=== PATIENT | male | born 1990 | race Caucasian/White ===

== ENCOUNTER 2020-04-13 21:05 | Emergency (ER) | payer SELFPAY ==
[~2020-04-13] VITALS: Ht 193 cm; Wt 79.5 kg
[2020-04-13 21:41] VITALS: BP 136/74
[2020-04-13] MEDS ORDERED: KETOROLAC 15 MG/ML VIAL. IVP ONE (23:00)
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
== END 2020-04-13 22:56 | disposition left against medical advice (07) ==
LOC: ER 21:05
DX: R60.0 Localized edema (principal); M79.605 Pain in left leg; F17.200 Nicotine dependence, unspecified, uncomplicated; Z98.890 Other specified postprocedural states; Z88.1 Allergy status to other antibiotic agents; Z88.8 Allergy status to other drugs, medicaments and biological substances
CPT/HCPCS: 99281